=== PATIENT | female | born 1995 | race Caucasian/White ===

== ENCOUNTER 2016-07-08 18:51 | Emergency (ER) | payer SELFPAY ==
[~2016-07-08] VITALS: Ht 162.6 cm; Wt 106.7 kg
[~2016-07-08 18:51] MED LIST: DOCU-30 PO; IBUP-1222 PO
[2016-07-08] MEDS ORDERED: KETOROLAC 30 MG/1 ML IM ONE (19:30)
[2016-07-08 19:58] LABS: PATH.CAST-FLAG NOT PRESENT; SPERM-FLAG NOT PRESENT; SRC-FLAG NOT PRESENT; XTAL-FLAG NOT PRESENT; YLC-FLAG NOT PRESENT
[2016-07-08 20:00] LABS: BLOOD UREA NITROGEN 15 mg/dL (7-18)
[2016-07-08 20:06] LABS: ASPARTATE AMINO TRANSFERASE 18 U/L (15-37)
[2016-07-08] MEDS ORDERED: KETOROLAC 30 MG/1 ML ONE (21:06)
[2016-07-08 22:12] VITALS: BP 117/50
== END 2016-07-08 22:14 | disposition home or self-care (01) ==
LOC: ED 22:00
DX: R10.2 Pelvic and perineal pain (principal); R10.9 Unspecified abdominal pain
CPT/HCPCS: 36415; 76830; 80053; 81001; 84703; 85025; 87086; 96372; 99285; J1885

== ENCOUNTER 2016-07-10 17:18 | Emergency (ER) | payer SELFPAY ==
[~2016-07-10] VITALS: Ht 162.6 cm; Wt 106.9 kg
[2016-07-10 17:22] VITALS: BP 144/81
[2016-07-10] MEDS ORDERED: HYDROcodone/APAP 5/325 TABLET ONE (18:23)
[2016-07-10] MEDS ORDERED: HYDROcodone/APAP 5/325 TABLET PO ONE (18:30)
== END 2016-07-10 18:50 | disposition home or self-care (01) ==
LOC: ED 18:43
DX: B02.9 Zoster without complications (principal)
CPT/HCPCS: 99283